=== PATIENT | male | born 1965 | race Caucasian/White ===

== ENCOUNTER 2022-01-29 13:25 | Emergency (ER) | payer BC ==
[~2022-01-29] VITALS: Ht 172.7 cm; Wt 81.6 kg
== END 2022-01-29 14:05 | disposition home or self-care (01) ==
LOC: ER 13:30
DX: E11.65 Type 2 diabetes mellitus with hyperglycemia (principal); I10 Essential (primary) hypertension; Z86.73 Personal history of transient ischemic attack (TIA), and cerebral infarction without residual deficits
CPT/HCPCS: 36415; 82948; 99282